=== PATIENT | female | born 1990 | race Two or more races ===

== ENCOUNTER → 2018-07-28 | Outpatient (CLI) | payer MEDICAID, OTHER | LOC: FIMAGING 10:48 | PROVIDERS: ATTEND Otolaryngology | DX: E04.1 Nontoxic single thyroid nodule (principal); G47.30 Sleep apnea, unspecified ==

== ENCOUNTER → 2018-08-19 | Outpatient (CLI) | payer MEDICAID ==
[~2018-08-19] MED LIST: LIDOCAINE 1% 300 MG/30 ML SDV ONE
== END ==
LOC: FIMAGING 07:54
PROVIDERS: ATTEND Otolaryngology
PROC: 07B23ZX Excision of Left Neck Lymphatic, Percutaneous Approach, Diagnostic (ICD-10-PCS; principal; 2018-08-19)
DX: R59.1 Generalized enlarged lymph nodes (principal)
CPT/HCPCS: 88184-90; 88185-91